=== PATIENT | male | born 1975 ===

== ENCOUNTER 2018-08-15 13:49 | Outpatient (CLI) | payer OTHER, SELFPAY ==
--- NOTE | 2018-08-15 10:40 | DI.RAD_ITS ---
SYMPTOMS/DIAGNOSIS: PAIN, SWELLING RIGHT HAND: A healing and/or healed fracture involving the distal metaphysis of the fifth metacarpal is demonstrated and there is a mild volar angulation of the distal fragment. No previous images were extant at the time of this interpretation.
== END 2018-08-15 14:09 ==
PROVIDERS: Visit Provider Physician Assistant Surgical
DX: M79.641 Pain in right hand (principal); S62.306D Unspecified fracture of fifth metacarpal bone, right hand, subsequent encounter for fracture with routine healing
CPT/HCPCS: 73120